=== PATIENT | male | born 1930 | race Caucasian/White ===

== ENCOUNTER 2018-01-30 13:11 | Emergency (ER) | payer OTHER ==
[2018-01-30] MEDS ORDERED: Sodium Chloride 0.9% 10 ML Syringe FLUSH PRN ×2 (13:44→14:18)
--- NOTE | 2018-01-30 13:46 | EDM.PDOC ---
ED HPI GENERAL MEDICAL PROBLEM - General Chief Complaint: Lower Extremity Injury/Pain Stated Complaint: Fall, hip pain Time Seen by Provider: 01/30/18 13:30 Source of Information: Reports: Patient, EMS, RN Notes Reviewed History Limitations: Reports: No Limitations - History of Present Illness INITIAL COMMENTS - FREE TEXT/NARRATIVE: 87 year old presents to the ED via [facility] after he was found on the floor at [facility] assisted living. It's unclear how long he was down. He was saturated with urine. He has right hip pain with a shortened right lower extremity. The patient has dementia so is unable to provide much history. He does complain of pain to the right hip. He was given Fentanyl en route and is on 2-4 L NC of oxygen. Treatments TENDERIZER TENDER: Reports: Other (see below) Other Treatments TENDERIZER TENDER: Fentanyl 50 mcg. - Related Data Allergies Allergy/AdvReac Type Severity Reaction Status Date / Time No Known Allergies Allergy Verified 01/30/18 13:26 Past Medical History Cardiovascular History: Reports: Hypertension Respiratory History: Reports: COPD Gastrointestinal History: Reports: Other (See Below) Other Gastrointestinal History: anemia Genitourinary History: Reports: BPH, Urinary Incontinence Psychiatric History: Reports: Dementia, Depression Social & Family History - Tobacco Use Smoking Status *Q: Unknown Ever Smoked Review of Systems - Review of Systems Review Of Systems: Unable To Obtain ED EXAM, GENERAL - Physical Exam Exam: See Below Exam Limited By: Other (Dementia) General Appearance: Alert, WD/WN, No Apparent Distress Respiratory/Chest: No Respiratory Distress, Chest Non-Tender, Other (Lung sounds are course throughout. ) Cardiovascular: Normal Peripheral Pulses, Regular Rate, Rhythm, No Edema GI/Abdominal: Normal Bowel Sounds, Soft, Non-Tender Extremities: Other (Pain with palpation to right hip. Right lower extremity is shortened and externally rotated. Neurovascular status is intact. ) Neurological: Alert, Confused, Slow to Respond Course - Vital Signs Last Recorded V/S: Last Vital Signs Temp 98.3 F 01/30/18 13:26 Pulse 54 L 01/30/18 13:26 Resp 22 H 01/30/18 13:26 BP 164/40 H 01/30/18 13:26 Pulse Ox 95 01/30/18 14:50 - Orders/Labs/Meds Orders: Active Orders 24 hr Category Date Time Status Insert Biggs Catheter [Insert Urinary Catheter] [OM.PC] Care 01/30/18 13:45 Ordered Q24H Peripheral IV Care [RC] . DIRECTED Care 01/30/18 13:45 Active Peripheral IV Care [RC] . DIRECTED Care 01/30/18 14:18 Active RT Aerosol Therapy [RC] ASDIRECTED Care 01/30/18 14:35 Active Urinary Catheter Assessment [RC] ASDIRECTED Care 01/30/18 13:46 Active CXR [Chest 1V Frontal] [CR] Stat Exams 01/30/18 13:43 Taken Hip Min 2V or 3V w Pelvis Rt [CR] Stat Exams 01/30/18 13:44 Taken Sodium Chloride 0.9% [Normal Saline] 1,000 ml Med 01/30/18 14:30 Active IV ASDIRECTED Sodium Chloride 0.9% [Saline Flush] Med 01/30/18 13:44 Active 10 ml FLUSH ASDIRECTED PRN Sodium Chloride 0.9% [Saline Flush] Med 01/30/18 14:18 Active 10 ml FLUSH ASDIRECTED PRN Peripheral IV Insertion Adult [OM.PC] Stat Oth 01/30/18 13:43 Ordered Peripheral IV Insertion Adult [OM.PC] Stat Oth 01/30/18 14:18 Ordered Medication Orders Sodium Chloride (Normal Saline) 1,000 mls @ 75 mls/hr IV ASDIRECTED MIKA Last Admin: 01/30/18 14:59 Dose: 75 mls/hr Sodium Chloride (Saline Flush) 10 ml FLUSH ASDIRECTED PRN PRN Reason: Keep Vein Open Last Admin: 01/30/18 14:15 Dose: 10 ml Sodium Chloride (Saline Flush) 10 ml FLUSH ASDIRECTED PRN PRN Reason: Keep Vein Open Last Admin: 01/30/18 15:00 Dose: 10 ml Labs: Laboratory Tests 01/30/18 01/30/18 01/30/18 Range/Units 14:29 14:29 14:35 WBC 9.74 H (4.23-9.07) K/mm3 RBC 3.71 L (4.63-6.08) M/mm3 Hgb 10.8 L (13.7-17.5) gm/L Hct 35.0 L (40.1-51.0) % MCV 94.3 H (79.0-92.2) fl MCH 29.1 (25.7-32.2) pg MCHC 30.9 L (32.2-35.5) g/dl RDW Std Deviation 50.3 H (35.1-43.9) fL Plt Count 194 (163-337) K/mm3 MPV 10.5 (9.4-12.3) fl Neut % (Auto) 88.5 H (34.0-67.9) % Lymph % (Auto) 7.0 L (21.8-53.1) % [place] % (Auto) 3.1 L (5.3-12.2) % Eos % (Auto) 0.9 (0.8-7.0) Baso % (Auto) 0.3 (0.1-1.2) % Neut # (Auto) 8.62 H (1.78-5.38) K/mm3 Lymph # (Auto) 0.68 L (1.32-3.57) K/mm3 [place] # (Auto) 0.30 (0.30-0.82) K/mm3 Eos # (Auto) 0.09 (0.04-0.54) K/mm3 Baso # (Auto) 0.03 (0.01-0.08) K/mm3 Manual Slide Review Normal smear Sodium 141 (136-145) mEq/L Potassium 5.2 H (3.5-5.1) mEq/L Chloride 107 (98-107) mEq/L Carbon Dioxide 28 (21-32) mEq/L Anion Gap 11.2 (5-15) BUN 34 H (7-18) mg/dL Creatinine 1.7 H (0.7-1.3) mg/dL Est Cr Clr Drug Dosing 28.62 mL/min Estimated GFR (MDRD) 38 (>60) mL/min BUN/Creatinine Ratio 20.0 H (14-18) Glucose 203 H (83-115) mg/dL Calcium 8.3 L (8.5-10.1) mg/dL Total Bilirubin 0.8 (0.2-1.0) mg/dL AST 15 (15-37) U/L ALT 18 (16-63) U/L Alkaline Phosphatase 66 (46-116) U/L Total Protein 6.2 L (6.4-8.2) g/dl Albumin 3.1 L (3.4-5.0) g/dl Globulin 3.1 gm/dL Albumin/Globulin Ratio 1.0 (1-2) Urine Color Yellow (Yellow) Urine Appearance Clear (Clear) Urine pH 6.0 (5.0-8.0) Ur Specific [place] 1.020 (1.005-1.030) Urine Protein Negative (Negative) Urine Glucose (UA) Negative (Negative) Urine Ketones Negative (Negative) Urine Occult Blood Negative (Negative) Urine Nitrite Negative (Negative) Urine Bilirubin Negative (Negative) Urine Urobilinogen 0.2 (0.2-1.0) Ur Leukocyte Esterase Negative (Negative) Urine RBC 0-5 (0-5) /hpf Urine WBC 0-5 (0-5) /hpf Ur Epithelial Cells Not seen (0-5) /hpf Urine Bacteria Occasional (FEW) /hpf Urine Mucus Not seen (FEW) /hpf Meds: Medications Generic Name Dose Route Start Last Admin Trade Name Freq PRN Reason Stop Dose Admin Sodium Chloride 1,000 mls @ 75 mls/hr 01/30/18 14:30 01/30/18 14:59 Normal Saline IV 75 mls/hr ASDIRECTED MIKA Administration Sodium Chloride 10 ml 01/30/18 13:44 01/30/18 14:15 Saline Flush FLUSH 10 ml ASDIRECTED PRN Administration Keep Vein Open Sodium Chloride 10 ml 01/30/18 14:18 01/30/18 15:00 Saline Flush FLUSH 10 ml ASDIRECTED PRN Administration Keep Vein Open Discontinued Medications Generic Name Dose Route Start Last Admin Trade Name Jerzyq PRN Reason Stop Dose Admin Albuterol/Ipratropium 3 ml 01/30/18 14:35 01/30/18 14:48 Duoneb 3.0-0.5 Mg/3 Ml NEB 01/30/18 14:36 3 ml ONETIME ONE Administration Fentanyl 50 mcg 01/30/18 15:25 01/30/18 15:30 Sublimaze IVPUSH 01/30/18 15:26 50 mcg ONETIME ONE Administration - Re-Assessments/Exams Free Text/Narrative Re-Assessment/Exam: CBC reveals a WBC at upper limits of normal. He is anemic, likely chronic. CMP reveals K of 5.2. Creatinine 1.7 and BUN 34. UA obtained via cath and is negative for infection. 1 view chest x-ray reveals pulmonary vascular congestion but no acute pulmonary infiltrates or effusions. Right hip/pelvis x-rays reveal intratrochanteric fracture of the right hip. No pelvix fracture appreciated. Formal radiologist interpretation is pending. POA present at bedside. Discussed x-ray findings. They are agreeable to transfer. They would prefer transfer to [place]. I then called and spoke to Orthopedic Surgeon Dr. Restrepo and Hospitalist Dr. Greenwood who have accepted care of the patient. Patient will be transferred via ground ambulance. Departure - Departure Time of Disposition: 15:45 Disposition: DC/Tfer to [facility] 02 Condition: Fair Clinical Impression: Hip fracture Qualifiers: Encounter type: initial encounter Fracture type: closed Laterality: right Qualified Code(s): S72.001A - Fracture of unspecified part of neck of right femur, initial encounter for closed fracture - Discharge Information Referrals: Jay Dewitt MD [Primary Care Provider] - Forms: ED Department Discharge - My Orders Last 24 Hours: My Active Orders 01/30/18 13:43 CXR [Chest 1V Frontal] [CR] Stat Peripheral IV Insertion Adult [OM.PC] Stat 01/30/18 13:44 Hip Min 2V or 3V w Pelvis Rt [CR] Stat Sodium Chloride 0.9% [Saline Flush] 10 ml FLUSH ASDIRECTED PRN 01/30/18 13:45 Insert Biggs Catheter [Insert Urinary Catheter] [OM.PC] Q24H Peripheral IV Care [RC] . DIRECTED 01/30/18 13:46 Urinary Catheter Assessment [RC] ASDIRECTED 01/30/18 14:18 Peripheral IV Care [RC] . DIRECTED Sodium Chloride 0.9% [Saline Flush] 10 ml FLUSH ASDIRECTED PRN Peripheral IV Insertion Adult [OM.PC] Stat 01/30/18 14:30 Sodium Chloride 0.9% [Normal Saline] 1,000 ml IV ASDIRECTED 01/30/18 14:35 RT Aerosol Therapy [RC] ASDIRECTED - Assessment/Plan Last 24 Hours: My Active Orders 01/30/18 13:43 CXR [Chest 1V Frontal] [CR] Stat Peripheral IV Insertion Adult [OM.PC] Stat 01/30/18 13:44 Hip Min 2V or 3V w Pelvis Rt [CR] Stat Sodium Chloride 0.9% [Saline Flush] 10 ml FLUSH ASDIRECTED PRN 01/30/18 13:45 Insert Biggs Catheter [Insert Urinary Catheter] [OM.PC] Q24H Peripheral IV Care [RC] . DIRECTED 01/30/18 13:46 Urinary Catheter Assessment [RC] ASDIRECTED 01/30/18 14:18 Peripheral IV Care [RC] . DIRECTED Sodium Chloride 0.9% [Saline Flush] 10 ml FLUSH ASDIRECTED PRN Peripheral IV Insertion Adult [OM.PC] Stat 01/30/18 14:30 Sodium Chloride 0.9% [Normal Saline] 1,000 ml IV ASDIRECTED 01/30/18 14:35 RT Aerosol Therapy [RC] ASDIRECTED
[2018-01-30] MEDS ORDERED: Sodium Chloride 0.9% 1,000 ML IV SCH (14:30)
[2018-01-30] MEDS ORDERED: Albuterol/Ipratropium 3.0-0.5 MG/3 ML Neb Soln NEB ONE (14:35)
[2018-01-30] MEDS ORDERED: fentaNYL 100 MCG/2 ML SDV IVPUSH ONE (15:25)
--- NOTE | 2018-02-02 07:07 | CR ---
Chest: Frontal view of the chest was obtained. Comparison: Prior chest x-ray of 05/22/12. Heart is slightly enlarged. Tortuous thoracic aorta is seen. Pulmonary vessels are minimally congested. Slight parenchymal density seen within the left mid to lower lung.. Bony structures are osteopenic. Impression: 1. Slight cardiomegaly and minimal pulmonary vascular congestion. 2. Mild parenchymal density within the left mid to lower lung either due to atelectasis or possibly pneumonia. Diagnostic code #3
--- NOTE | 2018-02-02 08:26 | CR ---
Pelvis and right hip: AP view of the pelvis was obtained as well as lateral view of the right hip. Comparison: Prior pelvis and left hip study of 11/15/11. Left hip prosthesis is noted. Acute intertrochanteric fracture noted within the right hip with mild varus angulation. Osteopenia processes noted. Vascular calcification is seen. No acute abnormality seen within the pelvis. Degenerative change is partially visualized within the lumbar spine. Impression: 1. Acute intertrochanteric fracture within the right hip with varus angulation. 2. Other incidental findings. Diagnostic code #3
== END 2018-01-30 15:50 ==
LOC: JD.ED 13:11
DX: S72.001A Fracture of unspecified part of neck of right femur, initial encounter for closed fracture (principal); I10 Essential (primary) hypertension; J44.9 Chronic obstructive pulmonary disease, unspecified; W19.XXXA Unspecified fall, initial encounter
CPT/HCPCS: 36415; 51702; 71045; 73502; 80053; 81001; 85025; 94640; 96361; 96374; 99285; J3010; J7040; J7050; 99284